=== PATIENT | male | born 1970 | race Caucasian/White ===

== ENCOUNTER 2017-10-01 23:31 | Inpatient (IN) ==
[~2017-10-01 23:31] MED LIST: Morphine Inj 4 MG/ML Vial IV.PUSH ONE; ceFAZolin 2 GM Premix Inj 2 GM/100 ML BAG IV.SIG ONE
[2017-10-01] MEDS ORDERED: HYDROmorphone PF Inj 2 MG/ML Vial ONE (23:34)
[2017-10-01] MEDS ORDERED: Diphtheria/Tetanus/Pertussis Vaccine Inj 0.5 ML Syringe IM ONE (23:45)
[2017-10-01 23:50] LABS: Baso # (Auto) 0.1 th/mm3 (0.0-0.2); Baso % (Auto) 1.2 % (0.0-2.0); Eos # (Auto) 0.1 th/mm3 (0.0-0.4); Eos % (Auto) 0.5 % (0.0-4.0); Hematocrit 42.4 % (39.0-51.0); Hemoglobin 14.9 gm/dL (13.0-17.0); Lymph # (Auto) 3.3 th/mm3 (1.0-4.8); Lymph % (Auto) 28.5 % (9.0-44.0); Mean Corpuscular HGB Conc 35.1 % (32.0-36.0); Mean Corpuscular Hemoglobin 31.8 pg (27.0-34.0); Mean Corpuscular Volume 90.6 fL (80.0-100.0); Mean Platelet Volume 7.9 fL (7.0-11.0); Mono # (Auto) 1.1 th/mm3 (0.0-0.9); Mono % (Auto) 9.2 % (0.0-8.0); Neut % (Auto) 60.6 % (16.0-70.0); Platelet Count 239 th/mm3 (150-450); Red Blood Count 4.67 mil/mm3 (4.50-5.90); Red Cell Distribution Width 12.9 % (11.6-17.2); White Blood Count 11.6 th/mm3 (4.0-11.0)
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
[2017-10-02 00:01] LABS: Activated Partial Thrombo Time 23.3 sec (24.3-30.1); INR 1.1 Ratio; Prothrombin Time 10.8 sec (9.8-11.6)
[2017-10-02] MEDS ORDERED: Lidocaine 1%/Epinephrine 1:100,000 Inj 50 ML Vial INFILTRATN ONE (00:03)
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
[2017-10-02] MEDS ORDERED: HYDROmorphone PF Inj 2 MG/ML Vial IV.PUSH ONE (00:13)
[2017-10-02] MEDS ORDERED: Acetaminophen 325 MG Tablet PO PRN (00:18)
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
[2017-10-02] MEDS: Pantoprazole Inj 40 MG Vial IV.PUSH SCH (01:00)
[2017-10-02] MEDS ORDERED: Chlorhexidine Gluconate 2% 1 Pack (2 Cloths) TOPICAL SCH (02:30)
[2017-10-02] MEDS ORDERED: Metoprolol Tartrate 25 MG Tablet PO SCH (02:30)
[2017-10-02] MEDS: Sod Chloride 0.9% Inj 1,000 ML IV.CONT SCH ×2 (02:52→14:46)
[2017-10-02] MEDS ORDERED: Sodium Chlor 0.9% Inj 500 ML IV.SIG SCH (03:00)
[2017-10-02 06:18] LABS: Baso # (Auto) 0.1 th/mm3 (0.0-0.2); Baso % (Auto) 0.6 % (0.0-2.0); Eos % (Auto) 0.4 % (0.0-4.0); Hematocrit 42.8 % (39.0-51.0); Hemoglobin 14.7 gm/dL (13.0-17.0); Lymph # (Auto) 2.5 th/mm3 (1.0-4.8); Lymph % (Auto) 20.1 % (9.0-44.0); Mean Corpuscular HGB Conc 34.2 % (32.0-36.0); Mean Corpuscular Hemoglobin 31.6 pg (27.0-34.0); Mean Corpuscular Volume 92.4 fL (80.0-100.0); Mean Platelet Volume 7.8 fL (7.0-11.0); Mono # (Auto) 1.3 th/mm3 (0.0-0.9); Mono % (Auto) 10.5 % (0.0-8.0); Neut # (Auto) 8.3 th/mm3 (1.8-7.7); Neut % (Auto) 68.4 % (16.0-70.0); Platelet Count 204 th/mm3 (150-450); Red Blood Count 4.64 mil/mm3 (4.50-5.90); White Blood Count 12.2 th/mm3 (4.0-11.0)
[2017-10-02 06:43] LABS: Alanine Aminotransferase 68 U/L (12-78); Albumin 3.4 g/dL (3.4-5.0); Anion Gap 6 meq/L (5-15); Aspartate Aminotransferase 39 U/L (15-37); Blood Urea Nitrogen 9 mg/dL (7-18); Calcium 7.9 mg/dL (8.5-10.1); Carbon Dioxide 27.1 meq/L (21.0-32.0); Chloride 109 meq/L (98-107); Glomerular Filtration Rate 71 mL/min (>89); Glucose,Random 116 mg/dL (74-106); Potassium 4.2 meq/L (3.5-5.1); Sodium 142 meq/L (136-145)
[2017-10-02 06:45] LABS: Alkaline Phosphatase 63 U/L (45-117); Total Protein 6.8 g/dL (6.4-8.2)
[2017-10-02] MEDS ORDERED: ceFAZolin 2 GM Premix Inj 2 GM/50 ML PIGGYBACK IV.SIG SCH (08:00)
[2017-10-02] MEDS: Morphine Inj 4 MG/ML Vial IV.PUSH PRN ×3 (10:33→19:10)
[2017-10-02] MEDS: ceFAZolin 2 GM Premix Inj 2 GM/100 ML BAG IV.SIG SCH ×2 (10:33→17:05)
[2017-10-02] MEDS: Docusate Sodium 100 MG Capsule PO SCH ×2 (10:37→21:12)
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
[2017-10-02] MEDS: Artificial Tears Opth Drops 15 ML Bottle RIGHT EYE SCH ×2 (14:50→19:09)
[2017-10-03] MEDS: Pantoprazole Inj 40 MG Vial IV.PUSH SCH (01:37)
[2017-10-03] MEDS: ceFAZolin 2 GM Premix Inj 2 GM/100 ML BAG IV.SIG SCH (01:38)
[2017-10-03] MEDS: Sod Chloride 0.9% Inj 1,000 ML IV.CONT SCH ×2 (01:38→08:51)
[2017-10-03] MEDS: Morphine Inj 4 MG/ML Vial IV.PUSH PRN (01:41)
[2017-10-03] MEDS ORDERED: Balanced Salt Opth Irrigation 15 APPLIC/15 ML Bottle ONE (06:05)
[2017-10-03] MEDS ORDERED: Lidocaine 2%/Epinephrine 1:200,000 PF Inj 20 ML Vial ONE (06:05)
[2017-10-03] MEDS ORDERED: fentaNYL Citrate Inj 100 MCG/2 ML Ampul ONE (06:55)
[2017-10-03] MEDS: Docusate Sodium 100 MG Capsule PO SCH (08:52)
[2017-10-03] MEDS: Hypromellose 0.3% Opth Gel 10 GM Bottle RIGHT EYE SCH ×3 (08:56→17:03)
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
[2017-10-03] MEDS ORDERED: Phenylephrine/NS 1000 MCG/10ML Syringe IV.PUSH ONE (12:00)
[2017-10-03] MEDS ORDERED: Succinylcholine Inj 100 MG/5 ML Syringe IV.PUSH ONE (12:00)
[2017-10-03] MEDS ORDERED: Lidocaine PF 1% Inj 5 ML Syringe INFILTRATN ONE (12:00)
[2017-10-03] MEDS ORDERED: Ibuprofen 600 MG Tablet PO SCH (14:00)
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
== END 2017-10-03 18:32 | disposition home or self-care (01) ==
LOC: NEPI 23:31 → NEDA 23:43 → EDBD 23:43 → NEDA 10-02 00:04 → N06 10-02 02:18
PROVIDERS: ADMIT Surgery; ATTEND Surgery
PROC: [UNRECOGNIZED PROCEDURE] (2017-10-03 06:00)